=== PATIENT | female | born 1990 | race Caucasian/White ===

== ENCOUNTER → 2019-06-30 | Outpatient (CLI) | payer BC ==
--- NOTE | 2019-06-30 11:25 | Diagnostic Imaging Report ---
INDICATION: survey. TECHNIQUE: Multiple real-time grayscale images were obtained over the gravid uterus. COMPARISON: None. FINDINGS: There is a single live fetus in a breech presentation. heart rate was recorded at 149 BPM. Placenta is posterior. No previa is detected. Amniotic fluid index is 10.6 cm. survey demonstrates kidneys, bladder, and stomach to be unremarkable. brain is unremarkable. There is a four-chamber heart. There is a three-vessel cord with normal insertion. The spine is unremarkable. The profile with nose and lips was limited due to position. Biometrical measurements are as follows: Biparietal 4.53 cm, age 19 weeks 5 days. Head circumference 16.85 cm, age 19 weeks 4 days. Abdominal circumference 13.81 cm, age 19 weeks 2 days. Femur length 3.08 cm, age 19 weeks 4 days. Sonographic estimate age: 19 weeks 4 days. Sonographic estimated date of delivery: 11/20/2019. Estimated Weight: 290 gm (+/- 42 gm). LMP percentile: 22%. heart rate: 149 beats per minute. number: 1 of 1. IMPRESSION: Single live IUP of 19 weeks 4 days gestational age. Estimated date of confinement sonographically is 11/20/2019. Dictated by: Dictated on workstation # [id number]
== END ==
LOC: RAD 09:34
PROVIDERS: ATTEND Obstetrics & Gynecology
DX: Z36.89 Encounter for other specified antenatal screening (principal); Z3A.19 19 weeks gestation of pregnancy
CPT/HCPCS: 76805

== ENCOUNTER 2019-11-14 10:44 | Inpatient (IN) | payer BC ==
[~2019-11-14] VITALS: Ht 170.2 cm; Wt 86.0 kg
[2019-11-14] VITALS (50 sets, daily range): BP systolic 105–153; BP diastolic 57–98
[2019-11-14] MEDS: LACTATED RINGERS 1,000 ML IV SCH ×2 (11:00→11:30)
--- NOTE | 2019-11-14 11:13 | NUR ---
REY CORDERO presented to unit via ambulation from office, accompanied by s/o . REY CORDERO weighed, gowned, voided, and to bed. EFHM and TOCO applied, VS taken. REY CORDERO oriented to bed controls, call light, TV, heat, and A/C controls. Addendum: 11/14/19 at 1116 by ISAAC JARA RN incorrect time- pt on unit at 1052
[2019-11-14] MEDS ORDERED: D5 LR IV SOLUTION 1,000 ML IV SCH (11:18)
[2019-11-14] MEDS ORDERED: D5 LR IV SOLUTION 1,000 ML IV ONE (11:23)
[2019-11-14] MEDS ORDERED: MINERAL OIL CONCENTRATE 99.9% 15 ML UDC TOP PRN (11:30)
[2019-11-14] MEDS ORDERED: fentaNYL 2 mcg/ml BUPIVA 0.125 100 ML ONE (12:04)
[2019-11-14 12:10] LABS: BASOPHILS % (AUTO) 0 % (0-10); EOSINOPHILS # (AUTO) 0.1 10^3/uL (0.0-0.3); EOSINOPHILS % (AUTO) 1 % (0-10); HEMATOCRIT 38 % (35-52); HEMOGLOBIN 13.1 g/dL (11.5-16.0); LYMPHOCYTES # (AUTO) 1.2 10^3/uL (1.0-4.0); LYMPHOCYTES % (AUTO) 12 % (12-44); MEAN CORPUSCULAR HEMOGLOBIN 32 pg (25-34); MEAN CORPUSCULAR HGB CONC 34 g/dL (32-36); MEAN CORPUSCULAR VOLUME 94 fL (80-99); MEAN PLATELET VOLUME 10.7 fL (9.0-12.2); MONOCYTES # (AUTO) 0.9 10^3/uL (0.0-1.0); MONOCYTES % (AUTO) 9 % (0-12); NEUTROPHILS # (AUTO) 8.1 10^3/uL (1.8-7.8); NEUTROPHILS % (AUTO) 78 % (42-75); PLATELET COUNT 234 10^3/uL (130-400); WHITE BLOOD COUNT 10.4 10^3/uL (4.3-11.0)
[2019-11-14] MEDS ORDERED: BUPIVACAINE 0.25% 30 ML (SENSORCAINE) VIAL ONE (12:20)
[2019-11-14] MEDS ORDERED: fentaNYL INJECTION 100 MCG/2 ML AMP ONE (12:20)
--- NOTE | 2019-11-14 12:30 | NUR ---
Sabas Esqueda CRNA here for epidural placement. Procedure explained, consent reviewed and signed by anesthesia. Questions answered to patient's satisfaction. Time out taken to verify correct patient/procedure. Patient up to side of bed, assisted into sitting position. Betadine prep done x3 and sterile drape applied. Local done, see anesthesia record. Test dose given, see anesthesia record for drug and dosage. Epidural catheter secured in place. Epidural placement complete. Assisted back into bed, monitors adjusted. Epidural dosed, see anesthesia record. Epidural of Sufenta/Bupvicaine @12cc/hr stated per pump. Patient tolerated procedure well.
[2019-11-14] MEDS ORDERED: EPIDURAL (fentaNYL 2 MCG/ML BUPIVA 0.125%)100 ML BAG EPI PRN (13:15)
[2019-11-14] MEDS ORDERED: METOCLOPRAMIDE INJ 10 MG/2 ML (REGLAN) IV PRN (13:15)
[2019-11-14] MEDS ORDERED: NALOXONE 0.4 MG/ML 1 ML (NARCAN) VIAL IV PRN ×2 (13:15)
[2019-11-14] MEDS ORDERED: diphenhydrAMINE 50 MG/ML INJ (BENADRYL) IV PRN (13:15)
[2019-11-14] MEDS ORDERED: ONDANSETRON 4 MG/2 ML (SDV) Z0FRAN IV PRN (13:15)
[2019-11-14] MEDS ORDERED: ONDANSETRON 4 MG/2 ML (SDV) Z0FRAN ONE (13:24)
[2019-11-14] MEDS ORDERED: FLU QUADRIvalent (3YOA+) 60 mcg/0.5 ml 2020-21 (AFLURIA) IM ONE (13:45)
[2019-11-14] MEDS ORDERED: CATHETER FLUSH 10 ML SYR IV SCH ×2 (14:00→22:00)
--- NOTE | 2019-11-14 14:00 | History & Physical-OB ---
OB - Chief Complaint & HPI Date/Time Date of Admission: Date of Admission: Nov 14, 2019 at 10:44 am Date seen by a Provider: Nov 14, 2019 Time Seen by a Provider: 11:45 Chief Complaint/History OB-Reason for Admission/Chief: Onset of Labor Hx : 1 Hx Para: 0 Expected Date of Delivery: Nov 18, 2019 Gestational Age in Weeks: 39 Gestational Age in Days: 3 Admission Nurse Assessment Rev: Yes History of Labs A neg Antibody neg RI RPR NR HIV NR HBsAg NR GC neg GBS neg Allergies and Home Medications Allergies Coded Allergies: No Known Drug Allergies (Unverified , 11/14/19) Patient Home Medication List Home Medication List Reviewed: Yes OB - History Hx of Present Care: Yes Ultrasounds: Normal mid trimester US Obstetrical Complications: None Medical Complications: None Delivery History Adverse Rxn to Tranfusion: No Patient Past Medical History CHTN Social History/Family History Recent Infectious Disease Expo: No Alcohol Use: Denies Use Recreational Drug Use: No Immunizations Hepatitis A: Yes Hepatitis B: Yes OB - Admission Exam Physical Exam Vitals: Vital Signs 11/14/19 13:00 Temp 36.8 Pulse 83 Resp 18 Pulse Ox 99 O2 Delivery Room Air HEENT: NCAT Heart: Rhythm Normal Lungs: Clear Abdomen: Gravid Extremities: Normal Reflexes: Normal Cervical Dilatation: 5cm Effacement: 100% Station: 0 Membranes: Intact Heart Rate: 130's Accelerations: Accelerations Present Decelerations: No Decelerations Short Term Variability: Present Analysis Mgr Variability: Average (6-25) Contractions on Admission: 6-10 Minutes Apart Intensity: Firm Labs Laboratory Tests Test 11/14/19 11:40 Range/Units White Blood Count 10.4 4.3-11.0 10^3/uL Red Blood Count 4.07 3.80-5.11 10^6/uL Hemoglobin 13.1 11.5-16.0 g/dL Hematocrit 38 35-52 % Mean Corpuscular Volume 94 80-99 fL Mean Corpuscular Hemoglobin 32 25-34 pg Mean Corpuscular Hemoglobin Concent 34 32-36 g/dL Red Cell Distribution Width 13.0 10.0-14.5 % Platelet Count 234 130-400 10^3/uL Mean Platelet Volume 10.7 9.0-12.2 fL Immature Granulocyte % (Auto) 1 % Neutrophils (%) (Auto) 78 H 42-75 % Lymphocytes (%) (Auto) 12 12-44 % Monocytes (%) (Auto) 9 0-12 % Eosinophils (%) (Auto) 1 0-10 % Basophils (%) (Auto) 0 0-10 % Neutrophils # (Auto) 8.1 H 1.8-7.8 10^3/uL Lymphocytes # (Auto) 1.2 1.0-4.0 10^3/uL Monocytes # (Auto) 0.9 0.0-1.0 10^3/uL Eosinophils # (Auto) 0.1 0.0-0.3 10^3/uL Basophils # (Auto) 0.0 0.0-0.1 10^3/uL Immature Granulocyte # (Auto) 0.1 0.0-0.1 10^3/uL OB - Assessment/Plan/Diagnosis Assessment Assessment: active labor Admission Dx 29 yo @ 39.3 Active labor GBS neg CHTN Admission Status: Inpatient Order (span 2 midnights) Reason for Inpatient Admission: Active labor at 39 weeks Plan Plan: Expectant Management (AROM) DAVIS ARMAS DO Nov 14, 2019 2:00 pm
[2019-11-14] MEDS ORDERED: OXYTOCIN PRE-MIX DRIP 500 ML IV ONE (14:28)
[2019-11-14] MEDS: OXYTOCIN PRE-MIX DRIP 500 ML IV SCH ×2 (14:34→19:32)
[2019-11-14] MEDS ORDERED: LIDOCAINE/EPI 2% 1:200,00 (XYLOCAINE) 10 ML VIAL ONE (17:50)
[2019-11-14] MEDS ORDERED: OXYTOCIN PRE-MIX DRIP 500 ML IV SCH (19:07)
--- NOTE | 2019-11-14 19:13 | OB Labor & Delivery Record ---
L&D History Date of Service Date of Service: Nov 14, 2019 History Expected Date of Delivery: Nov 18, 2019 Gestational Age in Weeks: 39 Hx : 1 Hx Para: 0 Complications Events: Routine care Operative Indications (Cesarea: N/A-Vaginal Delivery Intrapartal Events: None L&D Stage1 Stage One Onset of Labor - Date: Nov 14, 2019 Monitors and Tracing Monitor Mode: External Heart Rate: 135 Monitor Accelerations: Uniform Monitor Decelerations: None Station: +1 Funeral Director/Embalmer/Owner Variability: Average (6-10) Short Term Variability: Present Presentation: Vertex Vital Signs VS - Last 72 Hours, by Label 11/14/19 11/14/19 11/14/19 11/14/19 11:43 12:13 12:32 12:36 Temp 36.7 Pulse 83 79 85 95 Resp 18 18 18 18 B/P (MAP) 122/78 (93) 126/86 (99) 132/88 (103) 137/93 (108) Pulse Ox 99 99 O2 Delivery Room Air Room Air 11/14/19 11/14/19 11/14/19 11/14/19 12:38 12:41 12:44 12:51 Pulse 90 92 85 97 Resp 18 18 18 18 B/P (MAP) 138/78 (98) 129/80 (96) 131/79 (96) 140/98 (112) Pulse Ox 99 98 O2 Delivery Room Air Room Air 11/14/19 11/14/19 11/14/19 11/14/19 12:54 13:00 13:00 13:05 Temp 36.8 36.8 Pulse 92 83 79 85 Resp 18 18 18 18 B/P (MAP) 130/87 (101) 122/80 (94) 136/83 (100) Pulse Ox 98 99 99 100 O2 Delivery Room Air Room Air Room Air Room Air 11/14/19 11/14/19 11/14/19 11/14/19 13:10 13:15 13:20 13:25 Pulse 84 97 79 83 Resp 18 18 18 18 B/P (MAP) 127/83 (98) 126/80 (95) 131/84 (100) 130/95 (107) Pulse Ox 100 98 98 100 O2 Delivery Room Air Room Air Room Air Room Air 11/14/19 11/14/19 11/14/1920 13:30 13:35 13:40 13:50 Temp 36.5 Pulse 87 90 86 85 Resp 18 18 18 18 B/P (MAP) 130/89 (103) 129/81 (97) 132/78 (96) 126/82 (97) Pulse Ox 99 99 100 99 O2 Delivery Room Air Room Air Room Air Room Air 11/14/19 11/14/19 11/14/19 11/14/19 14:00 14:15 14:35 14:50 Pulse 89 88 80 81 Resp 18 18 18 18 B/P (MAP) 127/89 (102) 131/84 (100) 133/86 (102) 124/82 (96) Pulse Ox 99 99 99 98 O2 Delivery Room Air Room Air Room Air Room Air 11/14/19 11/14/19 11/14/19 11/14/19 15:05 15:20 15:35 15:50 Temp 36.6 Pulse 86 81 85 82 Resp 18 18 18 18 B/P (MAP) 134/84 (101) 137/77 (97) 136/90 (105) 123/80 (94) Pulse Ox 98 100 99 98 O2 Delivery Room Air Room Air Room Air Room Air 11/14/19 11/14/19 11/14/19 11/14/19 16:05 16:20 16:35 16:50 Pulse 86 79 84 81 Resp 18 18 18 18 B/P (MAP) 127/77 (94) 118/74 (89) 127/80 (96) 127/80 (96) Pulse Ox 98 98 98 99 O2 Delivery Room Air Room Air Room Air Room Air Rupture of Membranes Spontaneous Ruture of Membrane: No Amniotic Membrane Rupture Time: 1159 Amniotic Membrane Fluid Desc.: Clear Vaginal Bleeding Description: Normal Show Induction/Anesthesia Epidural Cath Placement - Time: 1343 Progress/Notes Patient presented 4-5 cm dilatated, AROM performed, Pitocin started per protocol to max dose of 6 mu, epidural placed, patient progressed to complete and +2 station L&D Stage2 Stage Two Stage II Date: Nov 14, 2019 Monitors and Tracing Monitor Mode: External Heart Rate: 135 Monitor Accelerations: Uniform Monitor Decelerations: Variable Penitentiary Variability: Average (6-10) Short Term Variability: Present Position: Right Occiput Anterior Presentation: Vertex Cord Descript/Complications Cord Vessel Description: 3 Vessels Delivery Type Infant Delivery Method: Spontaneous Vaginal Anterior Shoulder: Right Episiotomy/Perineal Laceration Laceraction(s)/Extensions: Yes Episiotomy Description: Perineal Extension/lac, 4th Degree Degree (describe repair) 4th degree repaired done in usual fashion, double layer rectal mucosa reapproximation using 3-0 rapide, then 3-0 vicryl used to reapproximate the rectal sphincer. Remainder of the repair done using 3-0 rapide and 2-0 vicryl suture in usual fashion. Condition of Infant Delivery 1 minute Comment: 8 5 minute Comment: 9 Notes Live male infant 8lbs 3oz Condition of Infant Condition of : Living Exam: No Observed Abnormalities Resuscitation Resuscitation: N/A - Spontaneous Resp L&D Stage3 Stage Three Stage III Date: Nov 14, 2019 Pictocin Pitocin Administration mu/min: 6 Pitocin ml/hr: 6 Pitocin Administration Comment: 30 mu wide open after delivery of placenta Placenta Delivery Placenta Delivery: Spontaneous Delivery Summary Summary Estimated blood loss (mL): 400 Attending at delivery: Davis Armas DO Condition of Delivery Examined: Cervix Examined, Uterus Explored Post Hemorrhage: No Condition of Mother stable Condition of (s) stable DAVIS ARMAS DO Nov 14, 2019 19:13
[2019-11-14] MEDS ORDERED: TETANUS,DIPTH,PERTUSS P/F (BOOSTRIX) 0.5 ML VIAL IM ONE (19:15)
[2019-11-14] MEDS ORDERED: MILK OF MAGNESIA 400 MG/5 ML 30 ML UDC PO NR (19:15)
[2019-11-14] MEDS ORDERED: WITCH HAZEL(TUCKS) 40 EA JAR TOP PRN (19:15)
[2019-11-14] MEDS ORDERED: BENZOCAINE/MENTHOL (DERMOPLAST) 60 ML CAN TP PRN (19:15)
[2019-11-14] MEDS ORDERED: MEASLES,MUMPS,RUBELLA 1 EA INJ SQ ONE (19:15)
[2019-11-14] MEDS ORDERED: DIBUCAINE (NUPERCAINAL) 1% OINT 30 GM TOP PRN (19:15)
[2019-11-14] MEDS ORDERED: IBUPROFEN 600 MG (MOTRIN) TAB PO ONE (20:08)
[2019-11-14] MEDS: IBUPROFEN 600 MG (MOTRIN) TAB PO SCH (20:15)
--- NOTE | 2019-11-14 22:30 | NUR ---
Epidural cath removed, cath tip in tact, site wnl and left o/a, asymptomatic per pt report. Pt ambulatory to bathroom standby, unable to void at this time, will cont to monitor, pericare pads and gown changed. Pt to and transferred to room 310, oriented to call system, info packet and surroundings, denies needs or concerns at this time.
[2019-11-14] MEDS: DOCUSATE SODIUM 100 MG (COLACE) CAP PO SCH (23:25)
[2019-11-15] MEDS: IBUPROFEN 600 MG (MOTRIN) TAB PO SCH ×4 (03:22→21:01)
[2019-11-15 03:23] VITALS: BP 128/73
[2019-11-15 05:42] LABS: BASOPHILS # (AUTO) 0.1 10^3/uL (0.0-0.1); BASOPHILS % (AUTO) 0 % (0-10); EOSINOPHILS # (AUTO) 0.1 10^3/uL (0.0-0.3); EOSINOPHILS % (AUTO) 1 % (0-10); HEMATOCRIT 32 % (35-52); HEMOGLOBIN 10.8 g/dL (11.5-16.0); LYMPHOCYTES # (AUTO) 1.5 10^3/uL (1.0-4.0); LYMPHOCYTES % (AUTO) 10 % (12-44); MEAN CORPUSCULAR HEMOGLOBIN 33 pg (25-34); MEAN CORPUSCULAR HGB CONC 34 g/dL (32-36); MEAN CORPUSCULAR VOLUME 96 fL (80-99); MEAN PLATELET VOLUME 10.6 fL (9.0-12.2); MONOCYTES # (AUTO) 1.4 10^3/uL (0.0-1.0); MONOCYTES % (AUTO) 10 % (0-12); NEUTROPHILS # (AUTO) 11.3 10^3/uL (1.8-7.8); NEUTROPHILS % (AUTO) 79 % (42-75); PLATELET COUNT 190 10^3/uL (130-400); WHITE BLOOD COUNT 14.4 10^3/uL (4.3-11.0)
--- NOTE | 2019-11-15 07:22 | Anesthesia-Regional Post-Op ---
Regional Patient Condition Mental Status: Alert, Oriented x3 Circulation: Same as Pre-Op Headache: Absent Sensation: Full Recovery Motor Block: Absent Post Op Complications Complications None Follow Up Care/Instructions Patient Instructions None needed. Anesthesia/Patient Condition Patient is doing well, no complaints, stable vital signs, no apparent adverse anesthesia problems. No complications reported per nursing. D/C home per [facility] Criteria: No NAGA ZUNIGA CRNA Nov 15, 2019 07:22
--- NOTE | 2019-11-15 07:24 | Postpartum Progress Note ---
Note Note Day # 1 Subjective: Patient is without complaints. Ambulating, voiding. Tolerating a regular diet without nausea or vomiting. Normal lochia. Pain is well controlled with oral pain medications. Objective: Physical Exam: General - Alert and oriented, no apparent distress Abdomen - Soft, appropriately tender to palpation, non-distended, fundus firm at umbilicus Extremities - no edema, negative Casimiro's bilaterally Assessment: PPD 1 NVD 4th degree laceration Acute blood loss anemia Plan: Routine care. Encourage breast feeding. Encourage ambulation. Ferrous sulfate supplementation. Plan for discharge tomorrow Vitals - Labs Vital Signs - I&O Vital Signs Date Time Temp Pulse Resp B/P (MAP) Pulse Ox O2 Delivery O2 Flow Rate FiO2 11/15/19 03:23 37.1 110 18 128/73 (91) 97 11/14/19 22:00 101 18 121/68 (85) 11/14/19 21:00 116 18 130/65 (86) 11/14/19 20:30 112 18 140/68 (92) 11/14/19 20:00 37.1 113 18 132/76 (94) 11/14/19 19:45 37.2 110 18 141/73 (95) 11/14/19 19:30 37.3 105 18 127/67 (87) 11/14/19 19:15 37.3 102 18 130/65 (86) 11/14/19 18:48 105 18 138/73 (94) 11/14/19 18:35 109 18 139/96 (110) 11/14/19 18:20 92 18 141/73 (95) 11/14/19 18:00 36.4 88 18 122/72 (89) 100 Room Air 11/14/19 17:50 92 18 153/66 (95) 99 Room Air 11/14/19 17:45 90 18 110/73 (85) 100 Room Air 11/14/19 17:40 100 18 120/68 (85) 99 Room Air 11/14/19 17:30 83 18 105/67 (80) 99 Room Air 11/14/19 17:25 90 18 119/68 (85) 98 Room Air 11/14/19 17:20 93 18 115/57 (76) 99 Room Air 11/14/19 17:15 86 18 123/61 (81) 98 Room Air 11/14/19 17:10 86 18 130/63 (85) 98 Room Air 11/14/19 16:50 81 18 127/80 (96) 99 Room Air 11/14/19 16:35 84 18 127/80 (96) 98 Room Air 11/14/19 16:20 79 18 118/74 (89) 98 Room Air 11/14/19 16:05 86 18 127/77 (94) 98 Room Air 11/14/19 15:50 82 18 123/80 (94) 98 Room Air 11/14/19 15:35 36.6 85 18 136/90 (105) 99 Room Air 11/14/19 15:20 81 18 137/77 (97) 100 Room Air 11/14/19 15:05 86 18 134/84 (101) 98 Room Air 11/14/19 14:50 81 18 124/82 (96) 98 Room Air 11/14/19 14:35 80 18 133/86 (102) 99 Room Air 11/14/19 14:15 88 18 131/84 (100) 99 Room Air 11/14/19 14:00 89 18 127/89 (102) 99 Room Air 11/14/19 13:50 85 18 126/82 (97) 99 Room Air 11/14/19 13:40 36.5 86 18 132/78 (96) 100 Room Air 11/14/19 13:35 90 18 129/81 (97) 99 Room Air 11/14/19 13:30 87 18 130/89 (103) 99 Room Air 11/14/19 13:25 83 18 130/95 (107) 100 Room Air 11/14/19 13:20 79 18 131/84 (100) 98 Room Air 11/14/19 13:15 97 18 126/80 (95) 98 Room Air 11/14/19 13:10 84 18 127/83 (98) 100 Room Air 11/14/19 13:05 85 18 136/83 (100) 100 Room Air 11/14/19 13:00 36.8 79 18 122/80 (94) 99 Room Air 11/14/19 13:00 36.8 83 18 99 Room Air 11/14/19 12:54 92 18 130/87 (101) 98 Room Air 11/14/19 12:51 97 18 140/98 (112) 98 Room Air 11/14/19 12:44 85 18 131/79 (96) 11/14/19 12:41 92 18 129/80 (96) 99 Room Air 11/14/19 12:38 90 18 138/78 (98) 11/14/19 12:36 95 18 137/93 (108) 99 Room Air 11/14/19 12:32 85 18 132/88 (103) 99 Room Air 11/14/19 12:13 79 18 126/86 (99) 11/14/19 11:43 36.7 83 18 122/78 (93) I & O 11/15/19 07:00 Intake Total 1000 ml Balance 1000 ml Labs Laboratory Tests 11/14/19 11:40: White Blood Count 10.4, Red Blood Count 4.07, Hemoglobin 13.1, Hematocrit 38, Mean Corpuscular Volume 94, Mean Corpuscular Hemoglobin 32, Mean Corpuscular Hemoglobin Concent 34, Red Cell Distribution Width 13.0, Platelet Count 234, Mean Platelet Volume 10.7, Immature Granulocyte % (Auto) 1, Neutrophils (%) (Auto) 78H, Lymphocytes (%) (Auto) 12, Monocytes (%) (Auto) 9, Eosinophils (%) (Auto) 1, Basophils (%) (Auto) 0, Neutrophils # (Auto) 8.1H, Lymphocytes # (Auto) 1.2, Monocytes # (Auto) 0.9, Eosinophils # (Auto) 0.1, Basophils # (Auto) 0.0, Immature Granulocyte # (Auto) 0.1 11/15/19 05:04: White Blood Count 14.4H, Red Blood Count 3.29L, Hemoglobin 10.8L, Hematocrit 32L , Mean Corpuscular Volume 96, Mean Corpuscular Hemoglobin 33, Mean Corpuscular Hemoglobin Concent 34, Red Cell Distribution Width 13.1, Platelet Count 190, Mean Platelet Volume 10.6, Immature Granulocyte % (Auto) 1, Neutrophils (%) (Auto) 79H, Lymphocytes (%) (Auto) 10L, Monocytes (%) (Auto) 10, Eosinophils (%) (Auto) 1, Basophils (%) (Auto) 0, Neutrophils # (Auto) 11.3H, Lymphocytes # (Auto) 1.5, Monocytes # (Auto) 1.4H, Eosinophils # (Auto) 0.1, Basophils # (Auto) 0.1, Immature Granulocyte # (Auto) 0.1 DAVIS ARMAS DO Nov 15, 2019 07:24
--- NOTE | 2019-11-15 08:45 | NUR ---
A.M. ASSESSMENT COMPLETED. VSS. PT CONCERNED ABOUT PULSE BUT CURRENTLY 110. INITIALLY WAS 120. CARING FOR IN [place], GOOD INTERACTION NOTED. . STATES DOING WELL.
[2019-11-15] MEDS: FERROUS SULF 325 MG (IRON) TAB PO SCH (08:58)
[2019-11-15] MEDS: PRENATAL VITAMIN 1 EA TAB PO SCH (08:58)
[2019-11-15] MEDS: DOCUSATE SODIUM 100 MG (COLACE) CAP PO SCH ×2 (08:59→21:01)
[2019-11-15 09:00] VITALS: BP 128/76
--- NOTE | 2019-11-15 11:00 | NUR ---
HAS BEEN IN TO ASSIST PRN.
[2019-11-15 12:15] VITALS: BP 120/82
--- NOTE | 2019-11-15 12:15 | NUR ---
ICE PACK FRESHENED NEEDED. VSS. HE 106. SPOUSE AT BEDSIDE.
[2019-11-15] MEDS ORDERED: HYDR-4226 PO (13:12)
[2019-11-15] MEDS ORDERED: DCS100C PO (13:12)
[2019-11-15] MEDS ORDERED: IBUP-844 PO (13:12)
[2019-11-15] MEDS ORDERED: FERR325T18 PO (13:12)
[2019-11-15] MEDS ORDERED: DIBU30OI TOP (13:12)
[2019-11-15] MEDS ORDERED: BENZ78AE5 TP (13:12)
--- NOTE | 2019-11-15 13:13 | Discharge Inst-Women's Service ---
Discharge Inst-Women's Serv Depart Medication/Instructions New, Converted or Re-Newed RX: RX on Chart Final Diagnosis PPD 2 NVD Problems Reviewed?: Yes Consults/Follow Up Additional Follow Up: Yes Orders/Referrals Dr. Armas in 6 weeks Activity Activity: Activity as Tolerated Driving Instructions: No Driving for 1 Week NO SMOKING: NO SMOKING Nothing Inside Vagina: No Douching, No [place], No Tampons Diet Discharge Diet: No Restrictions Symptoms to Report to : Bleeding Excessive, Pain Increased, Fever Over 101 Degrees F, Vaginal Bleeding Increase, Questions/Concerns For Any Problems or Questions: Contact Your Physician DAVIS ARMAS DO Nov 15, 2019 1:13 pm
--- NOTE | 2019-11-15 15:30 | NUR ---
ROUTINE MOTRIN GIVEN. ASKED PT IF SHE NEEDS ANYTHING STRONGER BUT DECLINES AT THIS TIME ENCOURAGED PT TO ALERT RN IF NEEDING ANYTHING STRONGER FOR PAIN.
[2019-11-15 16:30] VITALS: BP 134/74
[2019-11-15] MEDS ORDERED: HYDROcodone/APAP 5 MG/325 MG (LORTAB) TAB ONE (16:35)
--- NOTE | 2019-11-15 16:35 | NUR ---
NOTIFIED DR. ARMAS OF PT'S C/O NEEDING STRONGER PAIN MEDICATION. ALSO INFORMED OF HR BEING IN THE 140'S WHEN TOOK VS AND 138 OVER 1 MINUTE OF AUSCULTATION BY THIS RN. ORDERS RECEIVED. PT HAS HAD SVT AND HAS BEEN ON LABETALOL DURING .
[2019-11-15] MEDS ORDERED: LABETALOL 200 MG (NORMODYNE) TAB PO ONE (16:36)
[2019-11-15] MEDS ORDERED: HYDROcodone/APAP 5 MG/325 MG (LORTAB) TAB PO PRN (16:45)
[2019-11-15] MEDS: LABETALOL 200 MG (NORMODYNE) TAB PO SCH (16:48)
--- NOTE | 2019-11-15 16:48 | NUR ---
LORTAB 5/325 1 TAB P.O. FOR C/O PERINEAL PAIN RATED 7/10. LABETALOL 100 MG GIVEN P.O.
--- NOTE | 2019-11-15 16:51 | NUR ---
FLU VACCINE GIVEN IM IN RIGHT DELTOID. SITE CLEAR.
--- NOTE | 2019-11-15 17:00 | NUR ---
HR DOWN TO 109 BPM.
--- NOTE | 2019-11-15 18:30 | NUR ---
EATING STORK MEAL. STATES FEELING BETTER WITH PAIN 05/18. ICE PACK PRN.
[2019-11-15 21:01] VITALS: BP 111/73
[2019-11-16 03:22] VITALS: BP 110/71
[2019-11-16] MEDS: IBUPROFEN 600 MG (MOTRIN) TAB PO SCH ×2 (03:22→08:54)
--- NOTE | 2019-11-16 08:49 | Postpartum Progress Note ---
Note Note Day # 2 Subjective: Patient is without complaints. Ambulating, voiding. Tolerating a regular diet without nausea or vomiting. Normal lochia. Pain is well controlled with oral pain medications. Objective: Physical Exam: General - Alert and oriented, no apparent distress Abdomen - Soft, appropriately tender to palpation, non-distended, fundus firm at umbilicus Extremities - +1 edema, negative Casimiro's bilaterally Assessment: PPD 2 NVD 4th degree laceration repair Acute blood loss anemia Plan: Routine care. Encourage breast feeding. Encourage ambulation. Ferrous sulfate supplementation. Plan for discharge today Vitals - Labs Vital Signs - I&O Vital Signs Date Time Temp Pulse Resp B/P (MAP) Pulse Ox O2 Delivery O2 Flow Rate FiO2 11/16/19 03:22 37.0 88 18 110/71 (84) 99 Room Air 11/15/19 21:01 37.0 99 18 111/73 (86) 99 Room Air 11/15/19 17:00 109 11/15/19 16:30 37.0 138 18 134/74 (94) 98 Room Air 11/15/19 12:15 36.8 106 18 120/82 (95) 98 Room Air 11/15/19 09:00 37.1 110 18 128/76 (93) 97 Room Air DAVIS ARMAS DO Nov 16, 2019 8:49 am
[2019-11-16 08:50] VITALS: BP 119/72
[2019-11-16] MEDS: FERROUS SULF 325 MG (IRON) TAB PO SCH (08:54)
[2019-11-16] MEDS: LABETALOL 200 MG (NORMODYNE) TAB PO SCH (08:55)
[2019-11-16] MEDS: PRENATAL VITAMIN 1 EA TAB PO SCH (08:55)
[2019-11-16] MEDS: DOCUSATE SODIUM 100 MG (COLACE) CAP PO SCH (08:55)
--- NOTE | 2019-11-16 08:57 | NUR ---
Unable to scan meds - no available scanner
[2019-11-16 14:00] VITALS: BP 119/72
--- NOTE | 2019-11-16 14:00 | NUR ---
Corrected time of 1400 of when administering Rhogam. ID card given with instructions.
== END 2019-11-16 14:05 | disposition home or self-care (01) | DRG 768 ==
LOC: LDRP 10:44
PROVIDERS: ADMIT Obstetrics & Gynecology; ATTEND Obstetrics & Gynecology
PROC: 10E0XZZ Delivery of Products of Conception, External Approach (ICD-10-PCS; principal; 2019-11-14)
PROC: 0DQP0ZZ Repair Rectum, Open Approach (ICD-10-PCS; 2019-11-14)
DX: O10.013 Pre-existing essential hypertension complicating pregnancy, third trimester (principal); Z37.0 Single live birth; O70.3 Fourth degree perineal laceration during delivery; D62 Acute posthemorrhagic anemia; O90.81 Anemia of the puerperium; Z3A.39 39 weeks gestation of pregnancy; Z23 Encounter for immunization
CPT/HCPCS: 36415; 83033; 85025; 86850; 86900; 86901; 90686

== ENCOUNTER → 2022-02-23 | Outpatient (CLI) | payer BC ==
[~2022-02-23] MED LIST: BENZ78AE5 TP; DIBU30OI TOP; DOCU-239 PO; FERR325T18 PO; HYDR-4226 PO; IBUP-844 PO
--- NOTE | 2022-02-23 15:54 | Diagnostic Imaging Report ---
INDICATION: survey. TECHNIQUE: Multiple real-time grayscale images were obtained over the gravid uterus. COMPARISON: None FINDINGS: There is a single live fetus in a transverse presentation, head to the maternal left. Heart rate was recorded at 146 bpm. Placenta is anterior. No previa is identified. Amniotic fluid index is 10.9 cm. Cervical length is 5.3 cm. survey shows kidneys, bladder and stomach to be unremarkable. brain is unremarkable. There is a four-chamber heart. There is a three-vessel cord with normal insertion. spine is unremarkable. Biometrical measurements are as follows: Biparietal 5.09 cm, age 21 weeks 3 days. Head circumference 19.11 cm, age 21 weeks 3 days. Abdominal circumference 16.68 cm, age 21 weeks 5 days. Femur length 3.46 cm, age 21 weeks 0 days. Sonographic estimate age: 21 weeks 3 days. Sonographic estimated date of delivery: 07/03/2022. Estimated Weight: 417 gm (+/- 61 gm). LMP percentile: 94%. heart rate: 146 beats per minute. number: 1 of 1. IMPRESSION: Single live IUP approximately 21 weeks 3 days gestational age. Estimated date of confinement sonographically is 07/03/2022. Dictated by: Dictated on workstation # [id number]
== END ==
LOC: RAD 09:47
PROVIDERS: ATTEND Nurse Practitioner Women's Health
DX: Z34.02 Encounter for supervision of normal first pregnancy, second trimester (principal); Z3A.21 21 weeks gestation of pregnancy
CPT/HCPCS: 76805

== ENCOUNTER 2022-06-30 05:32 | Outpatient (CLI) | payer BC ==
[~2022-06-30] VITALS: Ht 170.2 cm; Wt 89.1 kg
[2022-06-30] MEDS ORDERED: PNV-9 PO (11:01)
== END 2022-06-30 11:27 | disposition home or self-care (01) ==
LOC: PREOP 05:32
PROVIDERS: ATTEND Obstetrics & Gynecology
DX: Z01.818 Encounter for other preprocedural examination (principal)

== ENCOUNTER 2022-07-07 03:31 | Inpatient (IN) | payer BC ==
[~2022-07-07] VITALS: Ht 170.2 cm; Wt 89.0 kg
[2022-07-07] VITALS (14 sets, daily range): BP systolic 110–146; BP diastolic 63–107
[~2022-07-07 03:31] MED LIST changes: +PNV-9 PO
[2022-07-07] MEDS ORDERED: ceFAZolin INJECTION 2,000 MG ONE (03:49)
[2022-07-07] MEDS ORDERED: CITRIC ACID/SOB CIT (BICITRA) 30 ML UDC ONE (03:49)
[2022-07-07] MEDS ORDERED: FAMOTIDINE 20MG/2ML IV (PEPCID) ONE (03:50)
[2022-07-07] MEDS ORDERED: METOCLOPRAMIDE INJ 10 MG/2 ML (REGLAN) ONE (03:50)
[2022-07-07] MEDS ORDERED: NS (IVPB) 50 ML ONE (03:50)
[2022-07-07] MEDS ORDERED: D5 LR IV SOLUTION 1,000 ML IV SCH (04:00)
[2022-07-07] MEDS ORDERED: LACTATED RINGERS 1,000 ML IV PRN ×2 (04:00)
[2022-07-07] MEDS ORDERED: CITRIC ACID/SOB CIT (BICITRA) 30 ML UDC PO ONE (04:00)
[2022-07-07] MEDS ORDERED: METOCLOPRAMIDE INJ 10 MG/2 ML (REGLAN) IV ONE (04:00)
[2022-07-07] MEDS ORDERED: CATHETER FLUSH 10 ML SYR IV PRN (04:00)
[2022-07-07] MEDS ORDERED: OXYTOCIN PRE-MIX DRIP 1,000 ML IV ONE (04:04)
[2022-07-07] MEDS ORDERED: fentaNYL INJ 100 MCG/2 ML AMP ONE (04:04)
[2022-07-07] MEDS ORDERED: ONDANSETRON 4 MG/2 ML (SDV) Z0FRAN ONE ×2 (04:04→06:40)
--- NOTE | 2022-07-07 04:06 | History & Physical-OB ---
OB - Chief Complaint & HPI Date/Time Date of Admission: Date of Admission: July 07, 2022 at 03:31 Date seen by a Provider: July 07, 2022 Time Seen by a Provider: 03:45 Chief Complaint/History OB-Reason for Admission/Chief: Onset of Labor Hx : 2 Hx Para: 1 Expected Date of Delivery: Jul 11, 2022 Gestational Age in Weeks: 39 Gestational Age in Days: 3 Indication for induction: other Indication for : other (history of 4th degree laceration) Admission Nurse Assessment Rev: Yes Allergies and Home Medications Allergies Coded Allergies: No Known Drug Allergies (Unverified , 06/30/22) Patient Home Medication List Home Medication List Reviewed: Yes Pnv 119/Iron Fum/Folic Acid ( 19 Tablet) 29 Mg Iron-1 Mg Tablet, 1 EACH PO DAILY, (Reported) Entered as Reported by: Darlene uY on 06/30/22 1101 Last Action: Reviewed Discontinued Medications Benzocaine/Menthol (Dermoplast Pain Relieving [place]) 78 Gm Aerosol, 56 ML TP UD PRN for PAIN- SEE INSTRUCTIONS Discontinued Reason: No Longer Taking Prescribed by: DAVIS ARMAS on 11/15/19 1312 Dibucaine (Dibucaine) 30 Gm Oint, 0 GM TOP UD PRN for PAIN- SEE INSTRUCTIONS Discontinued Reason: No Longer Taking Prescribed by: DAVIS ARMAS on 11/15/19 1312 Docusate Sodium (Dok) 100 Mg Capsule, 100 MG PO BID PRN for CONSTIPATION-1ST LINE Discontinued Reason: No Longer Taking Prescribed by: DAVIS ARMAS on 11/15/19 1312 Ferrous Sulfate (Ferrous Sulfate) 325 Mg Tablet, 325 MG PO DAILY@0700 Discontinued Reason: No Longer Taking Prescribed by: DAVIS ARMAS on 11/15/19 1312 Hydrocodone/Acetaminophen (Hydrocodone/Acetaminophen 5 MG/325 MG TAB) 1 Each Tablet, 1-2 TAB PO Q6H Discontinued Reason: No Longer Taking Prescribed by: DAVIS ARMAS on 11/15/19 1312 Ibuprofen (Ibu) 600 Mg Tablet, 600 MG PO Q6HR Discontinued Reason: No Longer Taking Prescribed by: DAVIS ARMAS on 11/15/19 1312 OB - History Hx of Present Care: Yes Ultrasounds: Normal mid trimester US Obstetrical Complications: None Medical Complications: None Information Induced Hypertension: No Maternal Gestational Diabetes: No Hemorrhage: No Obstetrical History Hx : 2 Hx Para: 1 Hx # Term Pregnancies: 1 Number of Living Children: 1 Hx Termination: No Hx Multiple Gestation: No Hx Ectopic : No Hx Stillbirth: No Hx Complication: Yes (4th degree laceration) Hx Induced Hypertens: No Hx Maternal Gestational Diabet: No Hx Hemorrhage: No Delivery History Hx Dystocia: No Hx Forceps Assisted Delivery: No Hx Vacuum Extraction Assisted: No Hx Placenta Abnormality: No Hx Distress: No Hx Large For Gestational Age I: No Hx Small for Gestational Age I: No Hx Section: No Hx Vaginal Delivery Post C-Sec: No Hx Blood Disorders: No Adverse Rxn to Tranfusion: No Patient Past Medical History CHTN Social History/Family History Alcohol Use: Denies Use Smoking Cessation: Never smoker 2nd Hand Smoke Exposure: No Immunizations First/Initial COVID19 Vaccine: NO Second COVID19 Vaccination: NO Third COVID19 Vaccination Date: NO Hepatitis A: Yes Hepatitis B: Yes Tetanus Booster (TDap): Less than 5yrs OB - Admission Exam Physical Exam Heart: Rhythm Normal Lungs: Clear Abdomen: Gravid Extremities: Normal Cervical Dilatation: 7cm Station: -2 Membranes: Intact Heart Rate: 150's Accelerations: Accelerations Present Decelerations: No Decelerations Short Term Variability: Present [place] [place] Drilling Machine Operator Variability: Average (6-25) Contractions on Admission: < 5 Minutes Apart Date/Time Contractions Began;: 2200 07/06/22 Frequency of Contractions: q2-3min Intensity: Moderate OB - Assessment/Plan/Diagnosis Assessment Assessment: active labor, section Admission Dx IUP @ 39w3d Active labor HO 4th degree laceration Aneg GBS+ RI Admission Status: Inpatient Order (span 2 midnights) Reason for Inpatient Admission: IUP @ 39w3d Active labor Plan Plan: Section MILOTN IBARRA DO July 07, 2022 04:06
--- NOTE | 2022-07-07 04:09 | OB/GYN Operative Report ---
Operative Report Date of Procedure:July 07, 2022 Preoperative Diagnosis: IUP at 39 weeks 3 days history of fourth degree laceration active labor Postoperative Diagnosis: Same plus liveborn female Name of the Procedure:Primary low-transverse section Surgeon: Kaitlin Ibarra DO Director Of Professional Services(s): Roxi Talley CFA Anesthesia:Spinal GIBRAN mejia CRNA Indications for Procedure: Active labor history of fourth degree perineal laceration maternal elective Findings of the Procedure: Liveborn female at 0500 On 07/07/2022 Apgars 9/9 weight 8 pounds 8 ounces Complications: None Disposition: Stable to PACU Name and Description of the Procedure: Primary low transverse Informed consent was obtained and signed patient was taken to the OR suite placed under spinal anesthesia placed in the dorsal supine position prepped and draped usual sterile fashion. A timeout was performed. Anesthesia was confirmed using an Allis clamp. A Pfannenstiel skin incision was made and carried down to level the fascia. The fascia was nicked and incised bilaterally, reflected off the rectus abdominis muscle both superiorly and inferiorly. The rectus abdominis muscle was in the midline and peritoneum was entered into bluntly and extended bilaterally. The Michael retractor was then placed exposing the lower uterine segment. A low transverse uterine incision was made and extended bilaterally. The head was delivered atraumatically in a straight OP position. There was a nuchal cord x1 which was loose and reduced. The mouth and nose were bulb suctioned. The anterior and posterior shoulders were delivered followed by the rest the . After 60 seconds the cord was clamped and then cut. The infant was placed in the nurses care. The placenta was delivered spontaneously intact with three-vessel cord. The uterus was exteriorized and cleared of all clot and debris. Uterine incision extended into the lower uterine segment on the right side. The uterine incision was reapproximated using 0 Vicryl in a running interlocking fashion taking care to avoid the uterine artery on the right side as it extended downward. The incision was then imbricated using 0 Vicryl incorporating the bladder flap using 0 Vicryl in run dell fashion for excellent hemostasis. Uterus tubes and ovaries were inspected and were noted to be normal and were placed back inside the abdominal cavity without any difficulty the abdominal Cavity was cleared of all clot and debris. The incision was inspected once more and was noted to be hemostatic. The Michael retractor was then removed and the peritoneum was reapproximated using 0 Vicryl in running fashion. The rectus abdominis muscle was reapproximated using 0 Vicryl in a running fashion. The fascia was reapproximated using 1-0 Vicryl in a running fashion subcutaneous layer was reapproximated in 2-0 Vicryl in a running fashion and the skin was reapproximate using 3-0 Monocryl in a subcuticular fashion and then Dermabond was placed over the incision site. The estimate blood loss was 450 cc fluids 1800 cc urine output is 100 cc. All my counts were correct x2. Mother and tolerated the procedure well and was taken to recovery room in stable condition. KAITLIN IBARRA DO July 07, 2022 04:09
[2022-07-07 04:18] LABS: BASOPHILS # (AUTO) 0.1 10^3/uL (0.0-0.1); BASOPHILS % (AUTO) 1 % (0-10); EOSINOPHILS # (AUTO) 0.1 10^3/uL (0.0-0.3); EOSINOPHILS % (AUTO) 1 % (0-10); HEMATOCRIT 39 % (35-52); HEMOGLOBIN 12.9 g/dL (11.5-16.0); LYMPHOCYTES # (AUTO) 1.7 10^3/uL (1.0-4.0); LYMPHOCYTES % (AUTO) 15 % (12-44); MEAN CORPUSCULAR HEMOGLOBIN 31 pg (25-34); MEAN CORPUSCULAR HGB CONC 33 g/dL (32-36); MEAN CORPUSCULAR VOLUME 92 fL (80-99); MEAN PLATELET VOLUME 10.7 fL (9.0-12.2); MONOCYTES % (AUTO) 9 % (0-12); NEUTROPHILS # (AUTO) 8.2 10^3/uL (1.8-7.8); NEUTROPHILS % (AUTO) 74 % (42-75); PLATELET COUNT 232 10^3/uL (130-400)
[2022-07-07] MEDS ORDERED: BUPIVACAINE 0.5% 30 ML (SENSORCAINE) VIAL ONE (05:20)
[2022-07-07] MEDS ORDERED: KETOROLAC 30 MG/ML VIAL ONE (05:26)
[2022-07-07] MEDS ORDERED: CATHETER FLUSH 10 ML SYR IV SCH (06:00)
[2022-07-07] MEDS ORDERED: ONDANSETRON 4 MG/2 ML (SDV) Z0FRAN IVP ONE (06:45)
[2022-07-07] MEDS ORDERED: ONDANSETRON 4 MG/2 ML (SDV) Z0FRAN IVP PRN (07:30)
[2022-07-07] MEDS ORDERED: NALOXONE 0.4 MG/ML 1 ML (NARCAN) VIAL IV PRN (07:30)
[2022-07-07] MEDS ORDERED: MEASLES,MUMPS,RUBELLA 1 EA INJ SC SCH (07:30)
[2022-07-07] MEDS ORDERED: TETANUS,DIPTH,PERTUSS P/F (BOOSTRIX) 0.5 ML VIAL IM SCH (07:30)
[2022-07-07] MEDS: DOCUSATE SODIUM 100 MG (COLACE) CAP PO SCH ×2 (08:44→21:43)
[2022-07-07] MEDS: HYDROcodone/APAP 5 MG/325 MG (LORTAB) TAB PO PRN ×3 (08:52→21:45)
[2022-07-07] MEDS: OXYTOCIN PRE-MIX DRIP 500 ML IV SCH ×2 (08:53→13:09)
[2022-07-07] MEDS: KETOROLAC 30 MG/ML VIAL IV SCH ×2 (12:26→17:38)
[2022-07-07] MEDS: CATHETER FLUSH 10 ML SYR IV SCH (14:00)
[2022-07-08] MEDS: KETOROLAC 30 MG/ML VIAL IV SCH (01:38)
[2022-07-08 01:39] VITALS: BP 126/76
[2022-07-08] MEDS: CATHETER FLUSH 10 ML SYR IV SCH (01:39)
[2022-07-08 06:04] LABS: BASOPHILS # (AUTO) 0.1 10^3/uL (0.0-0.1); BASOPHILS % (AUTO) 1 % (0-10); EOSINOPHILS # (AUTO) 0.1 10^3/uL (0.0-0.3); EOSINOPHILS % (AUTO) 1 % (0-10); HEMATOCRIT 31 % (35-52); HEMOGLOBIN 10.4 g/dL (11.5-16.0); LYMPHOCYTES # (AUTO) 1.8 10^3/uL (1.0-4.0); LYMPHOCYTES % (AUTO) 13 % (12-44); MEAN CORPUSCULAR HEMOGLOBIN 31 pg (25-34); MEAN CORPUSCULAR HGB CONC 33 g/dL (32-36); MEAN CORPUSCULAR VOLUME 93 fL (80-99); MONOCYTES # (AUTO) 1.2 10^3/uL (0.0-1.0); MONOCYTES % (AUTO) 9 % (0-12); NEUTROPHILS # (AUTO) 10.2 10^3/uL (1.8-7.8); NEUTROPHILS % (AUTO) 76 % (42-75); PLATELET COUNT 218 10^3/uL (130-400); WHITE BLOOD COUNT 13.4 10^3/uL (4.3-11.0)
[2022-07-08] MEDS: HYDROcodone/APAP 5 MG/325 MG (LORTAB) TAB PO PRN ×3 (07:19→20:02)
[2022-07-08] MEDS ORDERED: RHO(D) IMMUNE GLOBULIN 300 MCG/2 ML SYRINGE IM/IV ONE (08:00)
--- NOTE | 2022-07-08 08:21 | Postpartum Progress Note ---
Note Note Day # 1 Subjective: Patient is without complaints. Ambulating, voiding. Tolerating a regular diet without nausea or vomiting. Normal lochia. Pain is well controlled with oral pain medications. Objective: Physical Exam: General - Alert and oriented, no apparent distress Abdomen - Soft, appropriately tender to palpation, non-distended, fundus firm at umbilicus Extremities - no edema, negative Casimiro's bilaterally Incision- c/d/i Assessment: POD 1 PLTCS Acute blood loss anemia Plan: Routine care. Encourage breast feeding. Encourage ambulation. Ferrous sulfate supplementation. Plan for discharge tomorrow Vitals - Labs Vital Signs - I&O Vital Signs Date Time Temp Pulse Resp B/P (MAP) Pulse Ox O2 Delivery O2 Flow Rate FiO2 07/08/22 01:39 36.4 86 18 126/76 (93) 99 Room Air 07/07/22 21:45 36.6 100 18 130/86 (101) 98 Room Air 07/07/22 17:30 36.9 87 18 135/81 (99) 98 Room Air 07/07/22 12:30 37.2 94 18 120/78 (92) 98 Room Air 07/07/22 08:30 36.7 105 18 124/63 (83) 97 Room Air I & O 07/08/22 07:00 Intake Total 4450 ml Output Total 1300 ml Balance 3150 ml Labs Laboratory Tests 07/08/22 05:45: White Blood Count 13.4H, Red Blood Count 3.35L, Hemoglobin 10.4L, Hematocrit 31L , Mean Corpuscular Volume 93, Mean Corpuscular Hemoglobin 31, Mean Corpuscular Hemoglobin Concent 33, Red Cell Distribution Width 13.7, Platelet Count 218, Mean Platelet Volume 11.0, Immature Granulocyte % (Auto) 1, Neutrophils (%) (Auto) 76H, Lymphocytes (%) (Auto) 13, Monocytes (%) (Auto) 9, Eosinophils (%) (Auto) 1, Basophils (%) (Auto) 1, Neutrophils # (Auto) 10.2H, Lymphocytes # (Auto) 1.8, Monocytes # (Auto) 1.2H, Eosinophils # (Auto) 0.1, Basophils # (Auto) 0.1, Immature Granulocyte # (Auto) 0.1 DAVIS ARMAS DO July 08, 2022 08:20
[2022-07-08 08:40] VITALS: BP 139/71
[2022-07-08] MEDS: IBUPROFEN 600 MG (MOTRIN) TAB PO SCH ×3 (08:46→20:02)
[2022-07-08] MEDS: DOCUSATE SODIUM 100 MG (COLACE) CAP PO SCH ×2 (08:46→20:02)
--- NOTE | 2022-07-08 10:24 | Anesthesia-Regional Post-Op ---
Regional Patient Condition Mental Status: Alert, Oriented x3 Circulation: Same as Pre-Op Headache: Absent Sensation: Full Recovery Motor Block: Absent Post Op Complications Complications None Follow Up Care/Instructions Patient Instructions None needed. Anesthesia/Patient Condition Patient is doing well, no complaints, stable vital signs, no apparent adverse anesthesia problems. No complications reported per nursing. GIBRAN REYES CRNA July 08, 2022 10:24
[2022-07-08 14:34] VITALS: BP 117/75
[2022-07-08 20:02] VITALS: BP 138/84
[2022-07-09 03:26] VITALS: BP 121/81
[2022-07-09] MEDS: IBUPROFEN 600 MG (MOTRIN) TAB PO SCH ×2 (03:26→09:57)
[2022-07-09] MEDS: HYDROcodone/APAP 5 MG/325 MG (LORTAB) TAB PO PRN ×2 (03:26→09:57)
[2022-07-09] MEDS: DOCUSATE SODIUM 100 MG (COLACE) CAP PO SCH (09:58)
[2022-07-09 10:00] VITALS: BP 122/76
[2022-07-09] MEDS ORDERED: IBUP-844 PO (12:14)
[2022-07-09] MEDS ORDERED: DOCU100C37 PO (12:14)
[2022-07-09] MEDS ORDERED: ACHD5005 PO (12:14)
--- NOTE | 2022-07-09 12:21 | Discharge Summary ---
Discharge Summary Hospital Course Problems Reviewed?: Yes Hospital Course Date of Admission: July 07, 2022 at 03:31 Admission Diagnosis : Family Physician/Provider: Liz,Local Physician Date of Discharge: 07/09/22 Discharge Diagnosis: Status post section Hospital Course: Patient was admitted for active labor. She had a history of fourth degree perineal laceration with her previous . She elected for primary low- transverse section which she delivered a liveborn . P ostoperatively her pain was well controlled she was up and ambulating. Her /postoperative course was uneventful. She was discharged home on postop day #2 with pain medications and instructions. Labs and Pending Lab Test: Microbiology 07/07/22 MRSA Screen - Final, Complete MRSA not isolated Home Meds Active Docusate Sodium 100 Mg Capsule 100 Mg PO BID Take 1 tablet twice a day Hydrocodone-Acetamin 5-325 mg (Hydrocodone/Acetaminophen) 5 Mg-325 Mg Tablet 1-2 Ea PO Q6HR PRN take 1 tablet every 6hrs as needed for pain Ibu (Ibuprofen) 600 Mg Tablet 600 Mg PO Q6H take 1 tablet every 6hrs as needed for pain Reported 19 Tablet (Pnv 119/Iron Fum/Folic Acid) 29 Mg Iron-1 Mg Tablet 1 Each PO DAILY Activity: Activity as Tolerated Driving Instructions: No Driving for 1 Week NO SMOKING: NO SMOKING Nothing Inside Vagina: No Douching, No [place], No Tampons Discharge Diet: No Restrictions, Regular Diet Symptoms to Report to : Pain Increased, Constipation(Persistant), Fever Over 101 Degrees F, Pain/Pressure in Chest, Cough Up/Vomit Blood, Vaginal Discharge Foul, Nausea/Vomiting, Weight Gain Over 2 Pounds For Any Problems or Questions: Contact Your Physician Infection Signs and Symptoms: Increased Redness, Foul Odor of Wound, Increased Drainage, Skin Itchy or Has a Rash, Increased Swelling, Temperature Above 101 F Operative Area Clean and Dry: Keep Incision Clean/Dry Stitches/Jovan/Dermabond: Dermabond Bathing Instructions: Shower Discharge Physical Examination Allergies: Coded Allergies: No Known Drug Allergies (Unverified , 06/30/22) Vitals & I&Os Vital Signs Date Time Temp Pulse Resp B/P (MAP) Pulse Ox O2 Delivery O2 Flow Rate FiO2 07/09/22 10:00 36.6 88 18 122/76 (91) 100 Room Air General Appearance: No Apparent Distress, WD/WN HEENT: PERRL/EOMI Respiratory: Chest Non Tender Cardiovascular: Regular Rate, Rhythm Gastrointestinal: Normal Bowel Sounds, No Organomegaly, No Pulsatile Mass, Non Tender, Soft, Other (Incision clean dry intact) Extremity: Pedal Edema (+1) Skin: Normal Color, Warm/Dry Neurologic/Psychiatric: Alert, Oriented x3 Copy Copies To 1: DAVIS ARMAS DO Discharge Summary Date of Admission July 07, 2022 at 03:31 Date of Discharge Discharge Date: Jul 09, 2022 Discharge Time: 12:00 Admission Diagnosis IUP at 39 weeks history of fourth degree perineal laceration active labor Discharge Diagnosis Status post primary low-transverse section Supervisory-Addendum Brief Verification & Attestation Participated in pt care: history, MDM, physical Personally performed: exam, history, MDM, supervision of care Care discussed with: other (NA) Procedures: performed I personally saw and examined this patient MILTON IBARRA DO Jul 09, 2022 12:20
--- NOTE | 2022-07-09 12:23 | Postpartum Progress Note ---
Note Note Day #2 Subjective: Patient is without complaints. Ambulating, voiding. Tolerating a regular diet without nausea or vomiting. Normal lochia. Pain is well controlled with oral pain medications. Breast-feeding going well Objective: Patient is day #2 status post low transverse section doing well no concerns. Her pain is well controlled. Physical Exam: General - Alert and oriented, no apparent distress Breasts are symmetrical no erythemA or engorgement Abdomen - Soft, appropriately tender to palpation, non-distended, fundus firm at umbilicus Incision clean dry intact Lochia minimal Extremities - no edema, negative Casimiro's bilaterally Assessment: [] post- day #2, status post Transverse section Recovering well, hemodynamically stable Plan: Routine care. Encourage breast feeding. Encourage ambulation. Ferrous sulfate supplementation. Plan for discharge Today Vitals - Labs Vital Signs - I&O Vital Signs Date Time Temp Pulse Resp B/P (MAP) Pulse Ox O2 Delivery O2 Flow Rate FiO2 07/09/22 10:00 36.6 88 18 122/76 (91) 100 Room Air 07/09/22 03:26 36.0 90 18 121/81 (94) 98 Room Air 07/08/22 20:02 36.3 98 18 138/84 (102) 98 Room Air 07/08/22 14:34 36.4 100 18 117/75 (89) 99 Room Air I & O 07/09/22 07:00 Intake Total 550 ml Balance 550 ml Labs Microbiology 07/07/22 MRSA Screen - Final, Complete MRSA not isolated MILTON IBARRA DO Jul 09, 2022 12:23
== END 2022-07-09 13:45 | disposition home or self-care (01) | DRG 787 ==
LOC: LDRP 03:31
PROVIDERS: ADMIT Obstetrics & Gynecology; ATTEND Obstetrics & Gynecology
PROC: 10D00Z1 Extraction of Products of Conception, Low, Open Approach (ICD-10-PCS; principal; 2022-07-07 04:33)
DX: O99.824 Streptococcus B carrier state complicating childbirth (principal); D62 Acute posthemorrhagic anemia; Z3A.39 39 weeks gestation of pregnancy; Z37.0 Single live birth; O90.81 Anemia of the puerperium; O69.81X0 Labor and delivery complicated by cord around neck, without compression, not applicable or unspecified
CPT/HCPCS: 36415; 83033; 85025; 86780; 86850; 86900; 86901; 87081; 94664